=== PATIENT | female | born 1990 | race Two or more races ===

== ENCOUNTER 2018-03-22 00:04 | Emergency (ER) | payer OTHER ==
[~2018-03-22] VITALS: Ht 162.6 cm; Wt 90.7 kg
--- NOTE | 2018-03-22 00:10 | NUR ---
PT FERNANDEZ FROM BUS STATION COMPLAINING OF SUICIDE IDEATION WITH NO PLAN. PT ALSO STATES "I'M SCARED OF THE DARK. I SEE SHADOWS THAT AREN'T THERE AND IT SCARES ME" PT DENIES HI, AUDITORY HALLUCINATIONS. DENIES DRUGS. WILL CONTINUE TO MONITOR
--- NOTE | 2018-03-22 00:25 | NUR ---
ER PA AT BEDSIDE FOR EVALUATION
--- NOTE | 2018-03-22 00:30 | NUR ---
URINE COLLECTED AND SENT TO LAB
--- NOTE | 2018-03-22 00:32 | NUR ---
SITE SAFETY MANAGER AT BEDSIDE FOR BLOOD DRAW
[2018-03-22 00:52] LABS: BASOPHILS % (AUTO) 0.4 % (0.0-2.0); EOSINOPHILS % (AUTO) 0.7 % (0.0-6.0); HEMATOCRIT 38 % (33-45); HEMOGLOBIN 12.3 g/dL (11.5-14.8); LYMPHOCYTES # (AUTO) 2.9 /CMM (0.8-4.8); LYMPHOCYTES % (AUTO) 31.7 % (20.0-44.0); MEAN CORPUSCULAR HGB CONC 33 g/dl (31.0-36.0); MEAN CORPUSCULAR VOLUME 83 fL (82-100); MONOCYTES # (AUTO) 0.5 /CMM (0.1-1.30); MONOCYTES % (AUTO) 5.4 % (2.0-12.0); NEUTROPHILS # (AUTO) 5.7 /CMM (1.8-8.9); NEUTROPHILS % (AUTO) 61.8 % (43.0-81.0); PLATELET COUNT (AUTO) 422 /CMM (150-450); RED BLOOD CELL COUNT(AUTO) 4.55 MIL/uL (4.0-5.2); WHITE BLOOD COUNT (AUTO) 9.3 K/uL (4.3-11.0)
[2018-03-22 00:57] LABS: APPEARANCE,URINE CLEAR (CLEAR); BILIRUBIN,URINE NEGATIVE (NEGATIVE); BLOOD, URINE NEGATIVE Ery/uL (NEGATIVE); COLOR,URINE YELLOW (YELLOW); KETONES,URINE NEGATIVE (NEGATIVE); LEUKOCYTE ESTERASE ,URINE 1+ (NEGATIVE); NITRITE, URINE NEGATIVE (NEGATIVE); PROTEIN,URINE NEGATIVE (NEGATIVE); UGLUCOSE NEGATIVE (NEGATIVE); UROBILINOGEN,URINE 0.2 EU/dL (0.2)
[2018-03-22 01:01] LABS: CARBON DIOXIDE 28 mmol/L (21-32); CHLORIDE 104 mmol/L (98-107); CREATININE 0.7 mg/dL (0.6-1.3); GLUCOSE 103 mg/dL (74-106); POTASSIUM 3.4 mmol/L (3.5-5.1); SODIUM SERUM 142 mmol/L (136-145); UREA NITROGEN, BLOOD 15 mg/dL (7-18)
[2018-03-22 01:07] LABS: BACTERIA,URINE Few /HPF (None Seen); RBC,URINE 0-2 /HPF (0-2); SQUAMOUS EPITHELIAL CELL,UR Few /HPF (None Seen)
[2018-03-22 01:08] LABS: ACETAMINOPHEN 0 ug/ml (10-30); ALANINE AMINOTRANSFERASE 26 U/L (12-78); ALBUMIN 3.8 g/dL (3.4-5.0); ALCOHOL, BLOOD < 3 mg/dL (0-0); ALKALINE PHOSPHATASE 99 U/L (46-116); ASPARTATE AMINOTRANSFERASE 12 U/L (15-37); BILIRUBIN,DIRECT 0.1 mg/dL (0.0-0.2); BILIRUBIN,TOTAL 0.3 mg/dL (0.2-1.0); SALICYLATE 1.4 mg/dL (2.8-20.0)
--- NOTE | 2018-03-22 04:47 | NUR ---
Pt accepted to [facility]. Dr Bustillos. # for report [phone].
--- NOTE | 2018-03-22 04:52 | NUR ---
Matthew called for transport. ETA [phone]. Trip#[id number]
--- NOTE | 2018-03-22 05:05 | NUR ---
GAVE REPORT TO HERMAN FROM [facility] FOR [facility]
[2018-03-22 05:49] VITALS: BP 109/74
--- NOTE | 2018-03-22 07:29 | NUR ---
GAVE REPORT TO TRANSPORTATION [facility] [id number] FOR [facility]
== END 2018-03-22 07:39 ==
LOC: ER 00:09
DX: R45.851 Suicidal ideations (principal); Z88.8 Allergy status to other drugs, medicaments and biological substances
CPT/HCPCS: 36415; 80048; 80076; 80305; 80329; 81001; 84703; 85025; 87086; 99285; A4606; G0480 ×2; Z7610; 81000-TC

== ENCOUNTER 2021-01-25 15:47 | Emergency (ER) | payer OTHER ==
[~2021-01-25] VITALS: Ht 160 cm; Wt 87.1 kg
[2021-01-25 16:47] LABS: BASOPHILS % (AUTO) 0.1 % (0.0-2.0); EOSINOPHILS % (AUTO) 0.5 % (0.0-6.0); HEMATOCRIT 38 % (33-45); HEMOGLOBIN 12.3 g/dL (11.5-14.8); LYMPHOCYTES # (AUTO) 2.6 K/uL (0.8-4.8); LYMPHOCYTES % (AUTO) 36.8 % (20.0-44.0); MEAN CORPUSCULAR HGB CONC 33 g/dl (31.0-36.0); MEAN CORPUSCULAR VOLUME 86 fL (82-100); MONOCYTES # (AUTO) 0.5 K/uL (0.1-1.30); NEUTROPHILS % (AUTO) 55.6 % (43.0-81.0); PLATELET COUNT (AUTO) 362 K/uL (150-450); WHITE BLOOD COUNT (AUTO) 7.2 K/uL (4.3-11.0)
[2021-01-25 16:58] LABS: ACETAMINOPHEN < 2 ug/ml (10-30); ALANINE AMINOTRANSFERASE 22 U/L (12-78); ALBUMIN 3.9 g/dL (3.4-5.0); ALCOHOL, BLOOD < 3 mg/dL (0-0); ALKALINE PHOSPHATASE 75 U/L (46-116); ASPARTATE AMINOTRANSFERASE 15 U/L (15-37); BILIRUBIN,DIRECT 0.2 mg/dL (0.0-0.2); BILIRUBIN,TOTAL 0.6 mg/dL (0.2-1.0); CALCIUM, SERUM 8.7 mg/dL (8.5-10.1); CARBON DIOXIDE 26 mmol/L (21-32); CHLORIDE 106 mmol/L (98-107); CREATININE 0.7 mg/dL (0.6-1.3); GLUCOSE 90 mg/dL (74-106); POTASSIUM 3.4 mmol/L (3.5-5.1); SODIUM SERUM 142 mmol/L (136-145); TOTAL PROTEIN, SERUM 7.6 g/dL (6.4-8.2); UREA NITROGEN, BLOOD 15 mg/dL (7-18)
--- NOTE | 2021-01-25 17:11 | NUR ---
URINE COLLECTED AND SENT TO THE LAB
[2021-01-25 17:58] LABS: BILIRUBIN,URINE SMALL (NEGATIVE); COLOR,URINE YELLOW (YELLOW); LEUKOCYTE ESTERASE ,URINE Negative (NEGATIVE); NITRITE, URINE Negative (NEGATIVE); PH,URINE 5.5 (5.0-8.0); PROTEIN,URINE Negative (NEGATIVE); UGLUCOSE Negative (NEGATIVE); UROBILINOGEN,URINE 0.2 EU/dL (0.2)
--- NOTE | 2021-01-25 19:22 | NUR ---
report given to nurse Vines for ramesh
--- NOTE | 2021-01-25 19:23 | NUR ---
[facility] care for pt. Pt bibra for aggressive behavior and screaming on the street. Pt aaox3, but has outburst of screaming, profanity, and nonsensical speaking. Pt calm at the moment. Pt attached to monitor and pox. Pt given blanket and call light within reach.
--- NOTE | 2021-01-25 21:03 | NUR ---
Patient is awake. Patient is watching television. Patient is calm and cooperative. Patient is breathing evenly and unlabored on room air. connected to the monitor. Call button is within reach. sitter is at bedside. will continue to monitor the patient closely.
--- NOTE | 2021-01-25 22:45 | NUR ---
Patient is provided water and food.
[2021-01-25] MEDS ORDERED: OLANZAPINE 10 MG VIAL IM ONE (22:55)
--- NOTE | 2021-01-26 03:27 | NUR ---
Patient is yelling, screaming, spitting, and cursing at staff. Patient is not redirectable. MD notified. Ordered for IM zyprexa 10mg. Will medicate as ordered.
--- NOTE | 2021-01-26 03:33 | NUR ---
Patient is medicated as ordered.
[2021-01-26] MEDS: OLANZAPINE 10 MG VIAL IM ONE (03:40)
--- NOTE | 2021-01-26 08:04 | NUR ---
THE PATIENT IS RECEIVED IN ER BED #14. ALERT AND ORIENTED X3. DENIES PAIN. IN ROOM AIR AND DENIES SOB. RESPIRATION REGULAR AND UNLABORED. WILL CONTINUE TO MONITOR THE PATIENT. THE PATIENT IS HAVING BREAKFAST. TOLERATES PROVIDED FOOD WELL.
--- NOTE | 2021-01-26 19:16 | NUR ---
REPORT GIVEN TO NURSE FRAN FOR [facility]
--- NOTE | 2021-01-26 23:23 | NUR ---
PATIENT RESTING COMFORTBALY NO COMPLAINTS AT THIS TIME.
--- NOTE | 2021-01-27 01:01 | NUR ---
Patient is sleeping. Eyes are closed. Vital signs are stable. Call light is within reach. Bed rails are up for safety. No c/o or pain at this time. Sitter at bedside
--- NOTE | 2021-01-27 08:28 | NUR ---
TESSA ROSA WILL SEE PT AFTER MORNING CONFRENCE CALL.
--- NOTE | 2021-01-27 10:00 | NUR ---
TESSA DOUGHERTY AT BEDSIDE
--- NOTE | 2021-01-27 10:06 | NUR ---
SS consult: SS consult requested for this 31 year old female in the ED who was BIBRA "after bystander called 911 when the patient was screaming and yelling at an intersection" per EMR. Pt. has been demonstrating behavioral issue. Pt. informed MD that she has Hx. of Schizoaffective Dirsorder and is on Kaiden-acting Abilify which may not be working for her, Per EMR. Pt. was medicated with Zyprexa IM on 01/26/21 due to aggression, agitation, spitting, yelling etc. Pt. toxicology report was positive for Meamphetamine. FARHAT met with pt. bedside this morning. The pt. is easily arousable by verbal cues. The pt. appears disheveled is A&OX4. The pt. makes poor eye contact. Pt. is irritable but compliant with interview. Pt. denies SI/HI and denies hallucinations. Pt. stated she resides at [[address] [place] [address]] with her boyfriend, Martín. Pt.s tated she will go there after "i get paid". Pt. confirmed with FARHAT if today is January 27 the 2020. Pt. stated she receives soem financial assistance and did not wnat to specify. FARHAT explored pt.'s drug use and pt. stated "that is none of your business". Plan: FARHAT provided nurse, Rashida with bus pass and bus route to pt.'s home [[address] [place] [address]]. Pt. requested taxi to be called and stated she would pay for it. Rashida stated she will follow up. FARHAT discussed DC plan with Ford MILLER. FARHAT provided pt. with mental health, ddiction & homeless resources. Pt. refused them. Pt. also refused to sign homeless waiver. It wa splaced in the pt.'s chart. Year-round shelters: [facility] [address] [place] [address] ; [place] [facility] [address] [place] [address]; [place] [facility] Ucrtsbu4580 [facility]. [facility] [address] Winter Shelters: [facility] Provider: [facility] [place] Address: [address] [place], [address] # of Beds: 47 Population Served: [place] 6 | [facility] Sherrill Lacy [place] Provider: [facility] at Last Address: [address] [place] [address], [address] # of Beds: 66 Population Served: [facility] Florian [place] Provider: First to Serve Address: [address] [facility], [address] # of Beds: 56 Population Served: [facility] Prashant [place] Provider: [facility] Address: [address] [facility], [address] # of Beds: 49 Population Served: [place] 8 | [facility] Provider: First to Serve Address: [address] [facility]. [place], [address] # of Beds: 37 Population Served: [facility] Hygiene: [place] [facility]: [address] [facility] ; [place] [facility] [address] [facility] ; [facility] [address] [facility] . Food Resources: [place] [facility] at [facility]- [address] [facility]; Meet Each Need with Dignity ([facility]) [address] [facility]; [facility] 4334 [facility]; [facility] 8573 [facility]. Mental Health resources provided: [facility] [address] [place] [address] ; [facility] [address] [facility] [address], [place] [address] ; [place] [facility] Mental [facility] Urgent Care Center [address] [address] ; [place] [facility] [place], [place] [phone] Healthcare Clinics: [facility] [address] [facility], [address] [place]. [place] ; [facility] [address] [facility] [address] [place] [address]; [facility] [address] [facility] [place] [phone]) [phone] Counseling--[facility]patient [facility] [address] [facility], [place] [address] (Specializes in in-depth psychotherapy for emotional distress: anxiety, depression, interpersonal conflicts, life transitions, childhood abuse) [facility] [address] [place] [address] (Assist with solving problem marital difficulties, separation & divorce, aging parents, & grief, chronic & terminal illness) [facility] [address] [place] [address] (Deal with loss & grief, anxiety, marital difficulties) Homebound/Mental Health Services [address] [facility], [address] [place] [address] (Provide in-home mental services to people who are incapable of leaving their homes) [facility] for Needs of the Elderly Senior Service/Resource Center [address] [facility] [place] [address] [facility] [address] [facility] [place], [place] [id number] PSYCHIATRIC OUTPATIENT SERVICES [facility] Partial Hospitalization and Intensive Outpatient Program (Managed Care and [place] Only)[address] [facility]. [facility] [phone] [facility] Partial Hospitalization and Outpatient [id number] [facility]. [address] [place], [place] [phone] [facility] Health [place] Wiq43756 [facility] [address] [place], [place] [phone] [facility] Partial Hospitalization and Outpatient Dgsfxsa27259 [facility] Venkatesh, [phone] Substance Abuse resources provided included: [facility] Substance Abuse Self-Helpline ([facility]) ; CRI [facility]LP [address] [facility]. [place] [address] ; [facility] [place] [address] [facility] [address] ; [facility] [address] [facility] [place] [address] ; [facility] [address] [facility] [address] ; [facility] 4940 [facility] [phone] ; [place] [facility] [address] [facility] [phone] ; [facility] Substance Abuse Helpline([facility] ; [facility] ; [facility] [place]; [facility] [place]; [facility] [place]; [facility] [place]to theresa; [facility] [place]; [place]; [facility] [place]; [facility]'s [place] [place]; Alcoholics Anonymous -SFV; Iz-Zvpq-Wemhdna ; Marijuana Anonymous -SFV; Narcotics Anonymous www.na.org;
[2021-01-27 10:35] VITALS: BP 119/73
--- NOTE | 2021-01-27 10:35 | NUR ---
Patient discharged to home in stable condition. Written and verbal after care instructions given. Patient verbalizes understanding of instruction.
== END 2021-01-27 10:36 | disposition home or self-care (01) ==
LOC: ER 15:51
DX: F29 Unspecified psychosis not due to a substance or known physiological condition (principal); J45.909 Unspecified asthma, uncomplicated; Z88.8 Allergy status to other drugs, medicaments and biological substances; Z60.2 Problems related to living alone
CPT/HCPCS: 36415; 80048; 80076; 80143; 80307; 80320; 81003; 85025; 96372; 99285; J3490; G0480